=== PATIENT | female | born 1950 | race Caucasian/White ===

== ENCOUNTER 2018-08-11 11:03 | Outpatient (CLI) | payer MEDICARE, OTHER, SELFPAY ==
--- NOTE | 2018-08-11 11:05 | DI.RAD.S_ITS ---
PROCEDURE: PAIN L INTERLAMINAR/CAUDAL INJ INDICATIONS: SPINAL STENOSIS FINDINGS: Fluoroscopic spot filming was performed to verify placement of spinal needles at the L5-S1 interlaminar level(s), as labeled on the films. Appropriate location(s) of the needle tip(s) was confirmed by injection of iodinated contrast. IMPRESSION: Successful L5-S1 interlaminar needle tip localization for epidural steroid injection. Dictated by: Koko Bruno M.D. on 08/11/2018 at 16:16 Approved by: Koko Bruno M.D. on 08/11/2018 at 16:17
[2018-08-11 11:11] VITALS: BP 131/77; PULSE 81; RESP 18; TEMP 35.9; O2SAT 97
[2018-08-11 11:57] VITALS: BP 155/66; PULSE 68; RESP 16; O2SAT 100
[2018-08-11 12:00] VITALS: BP 140/70; PULSE 72; RESP 16; O2SAT 99
[2018-08-11 12:04] VITALS: BP 145/73; PULSE 70; RESP 16; O2SAT 100
[2018-08-11] MEDS: BUPIVACAINE 0.25% (PF) VIAL 2 ML INJ (12:07)
[2018-08-11] MEDS: IOPAMIDOL 15 ML VIAL 3 ML INJ (12:07)
[2018-08-11] MEDS: DEXAMETHASONE 10 MG/ML VIAL 20 MG INJ (12:07)
[2018-08-11] MEDS: methylPREDNISolone acetate 80 MG/ML VIAL INJ (12:07)
[2018-08-11 12:12] VITALS: BP 117/63; PULSE 76; RESP 20; O2SAT 100
--- NOTE | 2018-08-11 12:19 | P.PCN_ITS ---
Procedures Date/Time Date of procedure: 08/11/18 Time of procedure: 12:18 General Procedure description: PROVIDER: Darius Leslie DO Operative Note PREOP DIAGNOSIS 1. HNP WITH RADICULAR FEATURES, 2. MULTILEVEL CENTRAL STENOSIS, POST OP DIAGNOSIS 1. HNP WITH RADICULAR FEATURES, 2. MULTILEVEL CENTRAL STENOSIS, PROCEDURES 1. FLUORSCOPICALLY GUIDED CONTRAST CONTROLLED INTERLAMINAR EPIDURAL STEROID INJECTION - L5/S1 PHYSICIAN: Darius Leslie DO INDICATIONS Stephy is referred by Dr. Rebolledo for treatment of Bilateral Foraminal Stenosis L> R LE symptoms. FINDINGS Multilevel Central Spinal Stenosis with Nerve Root Compression DESCRIPTION OF PROCEDURE Fluoroscopically guided, contrast-controlled L5/S1 translaminar epidural steroid injection. Following denial of allergy and review of potential side effects and complications, including, but not necessarily limited to, infection, allergic reaction, local tissue breakdown, temporary as well as permanent nerve injury, paralysis, stroke and possible , the patient indicated that the patient understood and agreed to proceed. An informed consent document was signed by the patient, witnessed by a nurse, and placed in the patient's chart. Additionally, other treatment options including modalities, medications, and physical therapy were reviewed with the patient. After review of previous anaesthesic history and IV conscious sedation the patient was deemed safe to proceed with todays procedure with IV conscious sedation as ASA class II designation. Safety time-out was performed to confirm patient ID, procedure to be performed and site of procedure. IV sedation was deemed unnecessary and thus not administered by the RN after DO order, during the course of the procedure while the patient remained responsive to all verbal commands. In the prone position, following sterile prep and drape of the lumbar region, the L5/S1 translaminar space was identified fluoroscopically. The skin was anesthetized via a 25-gauge, 1.5-inch needle with 1% lidocaine solution. At this point, a 22-gauge short bevel spinal needle was atraumatically introduced and advanced under fluoroscopic guidance into the region of the L5/S1 translaminar space. Depth was confirmed on lateral view. Radiological data, including multiple fluoroscopic views of the lumbar spine, reveal a spinal needle at the L5/S1 translaminar space. Lateral views then show placement of the needle in the epidural space. Subsequent views show contrast material flowing superiorly and inferiorly in the epidural space. No vascular or intrathecal uptake is observed. At this point, using loss of resistance technique with saline and air, the epidural space was entered. This was confirmed following negative aspiration with injection of approximately 1.5 cc of Isovue 200, showing excellent epidural flow without vascular or intrathecal uptake. At this point, 1 cc of 1 % lidocaine solution combined with 3 cc or 20 mg of dexamethasone and 80mg Depo medrol was injected without incident. The patent tolerated the procedure without signs of symptoms of complications prior to transfer to the recovery area for further monitoring. The patient was then transferred to the recovery area where they were observed for an appropriate period of time after the injection. The patient reported a VAS score of 6 prior to the procedure and a post-procedure VAS of 0. Total Fluoroscopy Time: 11.8 seconds Total Conscious Sedation Time: 24min POST OP INSTRUCTIONS The patient was provided a Pain Log to continue to record their response to the target-specific procedure prior to follow-up visit with their referring physician. Additionally, specific post-injection care instructions and a contact number to our office were provided if concerns arise regarding possible complications associated with the procedure are suspected. Darius Leslie DO
--- NOTE | 2018-08-12 12:55 | PC.NURSE ---
FOLLOW UP CALL MADE. PT DENIES QUESTIONS/CONCERNS. STATES PAIN IS DECREASED AND PT ABLE TO SLEEP. SHE DID C/O SLIGHT PAIN AT THE INJECTION SITE. I SUGGESTED SHE HAVE SOMEONE LOOK AT THE SITE, AND BASIC 1ST AID FOR THE AREA. ALSO SUGGESTED THAT IF PT NOTES S/S OF INFECTION AT THE SITE, TO CALL DR. SOLORIO, HER PCM OR TO SEEK MEDICAL HELP.
== END 2018-08-11 12:23 | disposition home or self-care (01) ==
PROVIDERS: PCP Internal Medicine Geriatric Medicine; Visit Provider Physical Medicine & Rehabilitation
DX: M48.061 Spinal stenosis, lumbar region without neurogenic claudication (principal); M51.17 Intervertebral disc disorders with radiculopathy, lumbosacral region
CPT/HCPCS: 62323; J1040; J1100; J2250

== ENCOUNTER 2019-03-02 13:36 | Outpatient (CLI) | payer MEDICARE, OTHER, SELFPAY ==
[2019-03-02] VITALS (8 sets, daily range): BP systolic 118–151; BP diastolic 49–92; PULSE 61–71; RESP 16–18; TEMP 36; O2SAT 96–100
--- NOTE | 2019-03-02 13:37 | DI.RAD.S_ITS ---
PROCEDURE: PAIN L INTERLAMINAR/CAUDAL INJ INDICATIONS: SPINAL STENOSIS FINDINGS: Fluoroscopic spot filming was performed to verify placement of spinal needles at the L5-S1 midline dorsal interlaminar notch level, as labeled on the films. Appropriate location(s) of the needle tip(s) was confirmed by injection of iodinated contrast. IMPRESSION: Successful needle tip localization for epidural steroid injection at the midline dorsally, L5-S1. Dictated by: Koko Bruno M.D. on 03/02/2019 at 15:02 Approved by: Koko Bruno M.D. on 03/02/2019 at 15:02
[2019-03-02] MEDS: MIDAZOLAM 5 MG/5 ML VIAL IV (14:29)
[2019-03-02] MEDS: BUPIVACAINE 0.25% (PF) VIAL 2 ML INJ (14:35)
[2019-03-02] MEDS: IOPAMIDOL 15 ML VIAL 3 ML INJ (14:35)
[2019-03-02] MEDS: DEXAMETHASONE 10 MG/ML VIAL 20 MG INJ (14:35)
--- NOTE | 2019-03-02 14:37 | PC.NURSE ---
ASSISTING PT OFF TABLE AND TRANSPORTING TO POST PROC AREA IN STABLE CONDITION
--- NOTE | 2019-03-02 14:46 | PC.NURSE ---
pt returned from procedure via wheelchair awake and alert. Pt able to get from w/c to chair with standby assist. Resumed monitoring from Ileana DUMONT.
--- NOTE | 2019-03-02 14:47 | P.PCN_ITS ---
Procedures Date/Time Date of procedure: 03/02/19 Time of procedure: 14:45 General Procedure description: PROVIDER: Darius Leslie DO Operative Note PREOP DIAGNOSIS 1. HNP WITH RADICULAR FEATURES, 2. MULTILEVEL CENTRAL STENOSIS, POST OP DIAGNOSIS 1. HNP WITH RADICULAR FEATURES, 2. MULTILEVEL CENTRAL STENOSIS, PROCEDURES 1. FLUORSCOPICALLY GUIDED CONTRAST CONTROLLED INTERLAMINAR EPIDURAL STEROID INJECTION - L5/S1 PHYSICIAN: Darius Leslie DO INDICATIONS Stephy is referred by Dr. Rebolledo for treatment of Bilateral Foraminal Stenosis L>R LE symptoms. FINDINGS Multilevel Central Spinal Stenosis with Nerve Root Compression DESCRIPTION OF PROCEDURE Fluoroscopically guided, contrast-controlled L5/S1 translaminar epidural steroid injection. Following denial of allergy and review of potential side effects and complications, including, but not necessarily limited to, infection, allergic reaction, local tissue breakdown, temporary as well as permanent nerve injury, paralysis, stroke and possible , the patient indicated that the patient understood and agreed to proceed. An informed consent document was signed by the patient, witnessed by a nurse, and placed in the patient's chart. Additionally, other treatment options including modalities, medications, and physical therapy were reviewed with the patient. After review of previous anaesthesic history and IV conscious sedation the patient was deemed safe to proceed with todays procedure with IV conscious sedation as ASA class II designation. Safety time-out was performed to confirm patient ID, procedure to be performed and site of procedure. IV sedation was accomplished with a combination of 3mg of Versed administered by the RN after DO order, titrated to patient comfort during the course of the procedure while the patient remained responsive to all verbal commands. In the prone position, following sterile prep and drape of the lumbar region, the L5/S1 translaminar space was identified fluoroscopically. The skin was anesthetized via a 25-gauge, 1.5-inch needle with 1% lidocaine solution. At this point, a 22-gauge short bevel spinal needle was atraumatically introduced and advanced under fluoroscopic guidance into the region of the L5/S1 trans laminar space. Depth was confirmed on lateral view. Radiological data, including multiple fluoroscopic views of the lumbar spine, reveal a spinal needle at the L5/S1 translaminar space. Lateral views then show placement of the needle in the epidural space. Subsequent views show contrast material flowing superiorly and inferiorly in the epidural space. No vascular or intrathecal uptake is observed. At this point, using loss of resistance technique with saline and air, the epidural space was entered. This was confirmed following negative aspiration with injection of approximately 1.5 cc of Isovue 200, showing excellent epidural flow without vascular or intrathecal uptake. At this point, 1 cc of 1% lidocaine solution combined with 2cc or 20mg of dexamethasone was injected without incident. The patent tolerated the procedure without signs of symptoms of complications prior to transfer to the recovery area for further monitoring. The patient was then transferred to the recovery area where they were observed for an appropriate period of time after the injection. The patient reported a VAS score of 6 prior to the procedure and a post-procedure VAS of 0. Total Fluoroscopy Time: 11.8 seconds Total Conscious Sedation Time: 24min POST OP INSTRUCTIONS The patient was provided a Pain Log to continue to record their response to the target-specific procedure prior to follow-up visit with their referring physician. Additionally, specific post-injection care instructions and a contact number to our office were provided if concerns arise regarding possible complications associated with the procedure are suspected. Darius Leslie DO Complications: none
--- NOTE | 2019-03-03 15:39 | PC.NURSE ---
FOLLOW UP CALL MADE, LEFT PHONE MSG WITH CLINIC NUMBER AND HOURS FOR ANY QUESTIONS/CONCERNS.
== END 2019-03-02 15:22 ==
LOC: RAD 13:37
PROVIDERS: PCP Internal Medicine Geriatric Medicine; Visit Provider Physical Medicine & Rehabilitation
DX: M51.17 Intervertebral disc disorders with radiculopathy, lumbosacral region (principal); M48.07 Spinal stenosis, lumbosacral region
CPT/HCPCS: 62323; 99152; J1100; J2250; J3010

== ENCOUNTER → 2019-05-18 13:55 | Outpatient (CLI) | payer MEDICARE, OTHER, SELFPAY ==
--- NOTE | 2019-05-18 13:56 | DI.MRI.S_ITS ---
PROCEDURE: MR LUMBAR SPINE WO CON INDICATIONS: Low back and bialteral leg pain TECHNIQUE: Noncontrast sagittal T1 spin echo and T2 fast echo, sagittal STIR, axial T1 and T2 fast spin echo through the lumbar spine. In cases with scoliosis, additional coronal T2 fast spin echo may be performed. COMPARISON: [facility], , MR LUMBAR SPINE WO CON, 08/04/2015, 15:03. [facility], [place], SPINE LUMB MIN 4VW, 12/10/2016, 11:45. FINDINGS: Image quality: Excellent. Alignment and Curvature: 5 lumbar type vertebral bodies are present by plain film. There is mild grade 1 retrolisthesis of L5 on S1. Mild grade 1 anterolisthesis of L4 on L5. Bone Marrow: Marrow is of normal overall signal. No acute vertebral body compression fractures. Spinal Cord: Conus medullaris terminates at the upper L2 level. Visualized cord demonstrates normal signal and size. Paraspinous Soft Tissues: No paravertebral masses. L1-L2: Normal appearance. L2-L3: Mild facet hypertrophy. No significant canal, nor foraminal stenosis. No change. L3-L4: Mild disc desiccation. Mild diffuse disc bulge. Moderate facet and ligamentum flavum hypertrophy. Mild epidural lipomatosis. Moderate canal stenosis is unchanged. Mild right foraminal stenosis is unchanged. There is increased, moderate left foraminal stenosis. L4-L5: Moderate disc desiccation. Mild diffuse disc bulge. Moderate facet and ligamentum flavum hypertrophy. Mild epidural lipomatosis. Severe canal stenosis. Moderate subarticular foraminal stenosis bilaterally. No change. L5-S1: Moderate disc desiccation. Mild diffuse disc bulge. Mild bilateral facet and ligamentum flavum hypertrophy. Mild canal stenosis. Increased, severe left subarticular foraminal stenosis associated with left L5 nerve root compression. No change in moderate right foraminal stenosis. IMPRESSION: 1. Multilevel degenerative disc and facet disease, as well as ligamentum flavum hypertrophy and epidural lipomatosis. 2. 5 lumbar type vertebral bodies were presumed for the current report. Plain films of the lumbar spine are recommended for confirmation, prior to any lumbar spinal intervention. 3. No change in severe L4-L5 and moderate L3-L4 canal stenoses. 4. Multilevel foraminal stenoses, worst at L5-S1 on the left, where there is increased, severe foraminal stenosis with left L5 nerve root compression. Recommend correlation with clinical symptoms to ascertain relevance of this finding. Dictated by: Francy Wade M.D. on 05/18/2019 at 15:20 Approved by: Francy Wade M.D. on 05/18/2019 at 15:26
== END ==
PROVIDERS: PCP Internal Medicine Geriatric Medicine; Visit Provider Physical Medicine & Rehabilitation
DX: M54.5 Low back pain (principal); M79.605 Pain in left leg; M79.604 Pain in right leg; M51.36 Other intervertebral disc degeneration, lumbar region; M51.37 Other intervertebral disc degeneration, lumbosacral region; M48.061 Spinal stenosis, lumbar region without neurogenic claudication; M48.07 Spinal stenosis, lumbosacral region; E88.2 Lipomatosis, not elsewhere classified
CPT/HCPCS: 72148

== ENCOUNTER 2019-06-08 09:42 | Outpatient (CLI) | payer MEDICARE, OTHER, SELFPAY ==
[2019-06-08] VITALS (11 sets, daily range): BP systolic 121–173; BP diastolic 37–78; PULSE 61–74; RESP 12–20; TEMP 35.8; O2SAT 96–100
--- NOTE | 2019-06-08 09:44 | DI.RAD.S_ITS ---
PROCEDURE: PAIN L/S FACET INJ/BLK 1ST SONAL COMPARISON: None. INDICATIONS: SPINAL STENOSIS FINDINGS: 6 intraoperative fluoroscopy images demonstrate the placement at L3, L4 and L5 bilaterally. IMPRESSION: Fluoroscopy assisted for needle placement. Dictated by: Mable Brown M.D. on 06/08/2019 at 17:19 Approved by: Mable Brown M.D. on 06/08/2019 at 17:19
[2019-06-08] MEDS: MIDAZOLAM 5 MG/5 ML VIAL IV (10:40)
[2019-06-08] MEDS: fentaNYL 100 MCG/2 ML INJ 50 MCG IV (10:40)
--- NOTE | 2019-06-08 10:58 | PC.NURSE ---
pt tolerated procedure well. Able to get off table with standby assist. Transferred pt via wheelchair to pre procedure room for continued monitoring with Della DUMONT.
--- NOTE | 2019-06-08 11:05 | PC.NURSE ---
Returns to treatment room and is able to stand and turn to sit in chair independently
--- NOTE | 2019-06-08 11:08 | P.PCN_ITS ---
Procedures Date/Time Date of procedure: 06/08/19 Time of procedure: 11:05 General Procedure description: POST OP DIAGNOSIS 1. FACET ARTHROPATHY PROCEDURES 1. BILATERAL L3, L4 AND L5 MB BLOCKS PHYSICIAN: Darius Leslie DO INDICATIONS Stephy is referred by for treatment of Bilateral Axial LBP DESCIPTION OF PROCEDURE Fluoroscopically guided, contrast-controlled bilateral L3, L4 AND L5 medial branch blocks with 0.5cc of 0.5% Marcaine. Following review of allergy and review of potential side effects and complications, including, but not necessarily limited to, infection, allergic reaction, local tissue breakdown, nerve injury, paralysis, stroke and possible , the patient indicated that the patient understood and agreed to proceed. An informed consent document was signed by the patient, witnessed by a nurse, and placed in the patient's chart. After review of previous anaesthesic history and IV conscious sedation the patient was deemed safe to proceed with todays procedure with IV conscious sedation as ASA class II designation. Safety time-out was performed to confirm patient ID, procedure to be performed and site of procedure. IV sedation was accomplished with a combination of 3mg of Versed and 50mcg of Fentanyl was administered by the RN after DO order, titrated to patient comfort during the course of the procedure while the patient remained responsive to all verbal commands In the prone position, following sterile prep and drape of the lumbar region, the right L3, L4 AND L5 anatomical location of the medial branch of the dorsal ramus was identified fluoroscopically. Subsequently an anesthetic skin wheal using 1% lidocaine solution was initiated at each of the anatomical spots. Subsequently then a 22-gauge 3.5-inch spinal needle was atraumatically introduced and advanced under fluoroscopic guidance at each of the corresponding sites at the right L3, L4 AND L5 MB. After negative aspiration, 0.2 cc of Isovue 200 was injected, confirming placement without vascular or intrathecal up take. Subsequently then 0.5 cc of 0.5% Marcaine solution was injected at each of the corresponding sites at the Right L3, L4 AND L5 medial branch locations. The identical procedure was replicated on the left. The patient tolerated the procedure well without signs or symptoms of complications. The patient tolerated the procedure well without signs or symptoms of complications prior to transfer to the recovery area continued monitoring without incident. Post-procedure, the patient was monitored initiating provocative activities to measure the amount of relief from block of the facetogenic pain. The patient reported a VAS of 7 prior to the procedure and a post-procedure VAS of 1. It has been a pleasure to assist in the diagnostic and therapeutic care of your patient. Total Fluoroscopy Time: 24.8 seconds Total Conscious Sedation Time: 24min POST OP INSTRUCTIONS The patient was provided with a Pain Log to complete over the next several hours and subsequent days prior to the patient's follow up with the ordering physician. 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 The patient is aware, was provided, once again, with a Pain Log and will follow up with the referring physician for review and clinical correlation Darius Leslie DO Complications: none
[2019-06-08] MEDS: IOPAMIDOL 15 ML VIAL 3 ML INJ (11:10)
[2019-06-08] MEDS: LIDOCAINE 1% 20 ML INJ 10 ML INJ (11:11)
[2019-06-08] MEDS: BETAMETHASONE 30 MG/5 ML MDV 12 MG INJ (11:11)
[2019-06-08] MEDS: BUPIVACAINE 0.5% (PF) VIAL 2 ML INJ (11:11)
== END 2019-06-08 11:28 ==
LOC: RAD 09:43
PROVIDERS: PCP Internal Medicine Geriatric Medicine; Visit Provider Physical Medicine & Rehabilitation
DX: M47.816 Spondylosis without myelopathy or radiculopathy, lumbar region (principal)
CPT/HCPCS: 64493; 64494; 64495; 99152; J0702; J2250; J3010

== ENCOUNTER 2019-08-24 10:53 | Outpatient (CLI) | payer MEDICARE, OTHER, SELFPAY ==
[2019-08-24] VITALS (13 sets, daily range): BP systolic 117–147; BP diastolic 56–81; PULSE 62–74; RESP 14–16; TEMP 36.2; O2SAT 96–100
--- NOTE | 2019-08-24 10:55 | DI.RAD.S_ITS ---
PROCEDURE: PAIN L/S MED/LAT N RFA BILAT INDICATIONS: SPONDYLOSIS FINDINGS: Fluoroscopic spot filming was performed to verify placement of spinal needles at the L3, L4, L5 level(s), as labeled on the films. Appropriate location(s) of the needle tip(s) was confirmed by injection of iodinated contrast. Dictated by: Amanuel Ortiz M.D. on 08/24/2019 at 14:58 Approved by: Amanuel Ortiz M.D. on 08/24/2019 at 14:59
[2019-08-24] MEDS: fentaNYL 100 MCG/2 ML INJ 50 MCG IV (12:02)
[2019-08-24] MEDS: MIDAZOLAM 5 MG/5 ML VIAL IV (12:02)
[2019-08-24] MEDS: LIDOCAINE 1% 20 ML 10 ML INJ (12:39)
[2019-08-24] MEDS: BUPIVACAINE 0.5% (PF) VIAL 5 ML INJ (12:39)
[2019-08-24] MEDS: BETAMETHASONE 30 MG/5 ML MDV 12 MG INJ (12:40)
--- NOTE | 2019-08-24 12:44 | PC.NURSE ---
Post procedure nurses note: Patient was medicated with 5 mg Versed and 50 mcg Fentanyl. VSS throughout procedure. 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 Post procedure, easily arousable. Sat up on procedure and transfered to W/C with 1 assist. No complaints of unusual numbness or pain. Transported for procedure monitoring via w/c. Report given to Tracy Jurado RN
--- NOTE | 2019-08-24 12:46 | P.PCN_ITS ---
Procedures Date/Time Date of procedure: 08/24/19 Time of procedure: 12:46 General Procedure description: PREOP DIAGNOSIS 1. RECALCITRANT FACET ARTHROPATHY, POST OP DIAGNOSIS 1. RECALCITRANT FACET ARTHROPATHY PROCEDURES 1. BILATERAL L3, L4 AND L5 MEDIAL BRANCH RADIOFREQUENCY NEUROTOMY PHYSICIAN: Darius Leslie DO INDICATIONS: Stephy is referred by Dr. Rebolledo for treatment of facet arthropathy. DESCRIPTION OF PROCEDURE Bilateral L3, L4 and L5 medial branch radiofrequency neurotomy The patient is well known to this clinic having undergone previous facet injections with good but temporary relief. The patient has experienced a ppropriate, concordant relief with previous facet and median branch blocks but the patient's pain has been recalcitrant to further conservative measures. Therefore, based upon the patient's relief and persistent symptoms, the patient is considered an appropriate candidate for facet rhizotomy. All of the patient's questions regarding the risks versus benefits of the procedure, including, but not limited to, bleeding, infection, temporary as well as lasting nerve injury, paralysis, stroke, and , as well treatment alternatives were answered to satisfaction. After obtaining informed consent, denial of pertinent drug allergies, as well as being made aware of the potential risks of bleeding, infection, spinal cord trauma, paralysis, temporary and permanent nerve damage, seizure, stroke, and possible , the patient was brought to the fluoroscopy suite and positioned prone on the fluoroscopy table. The lumbar region was prepped with Betadine and covered with a fenestrated drape in the usual sterile fashion. Appropriate monitors applied including pulse oximeter, pulse, and blood pressure for regular monitoring throughout the procedure. After review of previous anaesthesic history and IV conscious sedation the patient was deemed safe to proceed with todays procedure with IV conscious sedation as ASA class II designation. Safety time-out was performed to confirm patient ID, procedure to be performed and site of procedure. IV sedation was accomplished with a combination of 5mg of Versed and 50mcg of Fentanyl administered by the RN after DO order, titrated to patient comfort during the course of the procedure while the patient remained responsive to all verbal commands. After local infiltration using 1% lidocaine, under fluoroscopic guidance, a 10- cm RF insulated needle with a 10-mm active tip was positioned parallel to the junction of the right the superior articulating process where the L5 medial branch resides. Needle placement was confirmed with sensory stimulation at 50 Hz, with motor stimulation of .5v on the right which produced local stimulation without radicular component. The stimulation was then increased to 1.5v with, once again, only local multifidus stimulation without radicular component. This was then followed by two discreet lesions performed at 80 degrees Celsius for 90 seconds each. The needle was then removed and the identical procedure was performed along the length of the right L4 medial branch with motor stimulation at .7v on the right. The identical procedure was once again performed along the length of the right L3 and medial branch with motor stimulation of .5v on the right. The identical procedures were repeated on the left. The patient tolerated the procedure well without signs or symptoms of complications prior to transfer to the recovery area continued monitoring without incident. The patient was then transferred to the recovery area where they were observed for an appropriate period of time after the injection. The patient reported a VAS score of 9 prior to the procedure and a post-procedure VAS of 0. Total Fluoroscopy Time: 22.7 seconds Total Conscious Sedation Time: 34min POST OP INSTRUCTIONS The patient was provided a Pain Log to continue to record the patient's response to the target-specific procedure prior to the patient's follow-up visit with the referring physician. Additionally, specific post-injection care instructions and a contact number to our office were provided if concerns arise regarding possible complications associated with the procedure are suspected. Darius Leslie DO Complications: none
--- NOTE | 2019-08-24 13:12 | DI.RAD.S_ITS ---
PROCEDURE: XR CERVICAL SPINE 4V OR 5V INDICATIONS: cervical spondylosis TECHNIQUE: 5 views of the cervical spine acquired. COMPARISON: [facility], , SPINE CERVICAL 2 OR 3VW, 06/10/2013, 9:45. FINDINGS: Bones: No fractures or dislocations to the T1 level. Straightening of the normal lordotic curvature. Multilevel degenerative endplate sclerosis and spurring. Diffuse facet arthropathy. Trace anterolisthesis of C4 on C5. Moderate narrowing of the C6-C7 disc space. Mild narrowing of the C5-C6 disc space. Levocurvature noted. On the right, there is moderate bony foraminal narrowing of the C4-C5, C5-C6 and C6-C7 foramen. On the left, there is mild bony foraminal narrowing at C6-C7 and C7-T1. Soft tissues: No prevertebral soft tissue swelling. IMPRESSION: Multilevel cervical spondylosis, most pronounced at C6-C7 and C5-C6, and facet arthropathy. This has progressed since the prior study Bilateral bony foraminal stenoses as detailed above. Dictated by: Amanuel Ortiz M.D. on 08/24/2019 at 17:09 Approved by: Amanuel Ortiz M.D. on 08/24/2019 at 17:12
--- NOTE | 2019-08-24 13:17 | PC.NURSE ---
1246 return via w/c post procedure, transfer self to w/c to recliner, without assist, snacks and drinks provided and tolerated. assume care from Ileana DUMONT
--- NOTE | 2019-08-24 14:13 | PC.NURSE ---
1246 rtr via w/c post procedure, stable, snacks provided, assume care from Ileana Sears
== END 2019-08-24 13:09 | disposition home or self-care (01) ==
PROVIDERS: PCP Internal Medicine Geriatric Medicine; Visit Provider Physical Medicine & Rehabilitation
DX: M47.816 Spondylosis without myelopathy or radiculopathy, lumbar region (principal)
CPT/HCPCS: 64635; 64636; 72050; 99152; 99153; J0702; J2250; J3010